=== PATIENT | male | born 1980 | race Caucasian/White ===

== ENCOUNTER 2017-11-02 17:48 | Emergency (ER) | payer OTHER ==
[~2017-11-02] VITALS: Ht 167.6 cm; Wt 100.8 kg
[~2017-11-02 17:48] MED LIST: CLONIDINE HCL0.1 MG PO; DEPAKOTE500 MG PO; DIVALPROEX SOD500 M1 PO; QUETIAPINE FUM200 MG PO; SEROQUEL400 MG PO; SERTRALINE HCL25 MG PO
[2017-11-02 20:21] VITALS: BP 125/83
== END 2017-11-02 20:21 | disposition home or self-care (01) ==
LOC: EME 17:48
DX: F31.32 Bipolar disorder, current episode depressed, moderate (principal); S20.219A Contusion of unspecified front wall of thorax, initial encounter; Z91.14 Patient's other noncompliance with medication regimen; F70 Mild intellectual disabilities; Y04.2XXA Assault by strike against or bumped into by another person, initial encounter; Z87.891 Personal history of nicotine dependence
CPT/HCPCS: 90837; 99281; 99285

== ENCOUNTER 2017-12-13 14:25 | Inpatient (IN) | payer OTHER ==
[~2017-12-13] VITALS: Ht 167.6 cm; Wt 101.6 kg
[2017-12-13 17:40] LABS: HEMATOCRIT 44.3 % (38.0-50.0); HEMOGLOBIN 15.2 G/DL (12.5-16.6); MCHC 34.3 G/DL (30.0-36.0); MCV 90.2 FL (86-99); RBC DIS.WIDTH-CV 13.4 % (11.8-14.6); RBC DIS.WIDTH-SD 44.2 % (39-53); RED BLOOD COUNT 4.91 M/uL (4.00-5.50); WHITE BLOOD COUNT 9.2 K/uL (4.1-10.2)
[2017-12-13 17:51] LABS: CHLORIDE 106 mEq/L (99-109); POTASSIUM 5.2 mEq/L (3.7-5.4); SODIUM 141 mEq/L (136-147)
[2017-12-13 17:53] LABS: GLUCOSE 90 mg/dL (70-99)
[2017-12-13 17:56] LABS: SERUM ETHYL ALCOHOL < 10 mg/dL
[2017-12-13 17:57] LABS: CREATININE 0.7 mg/dL (0.6-1.3); GFR ESTIMATE (CALCULATED) > 59 mL/min/ (58.99-99999)
[2017-12-13 17:58] LABS: UREA NITROGEN (BUN) 9 mg/dL (9-23)
[2017-12-13 19:10] LABS: PLAT.SUFFICIENCY ADEQUATE; PLATELET COUNT 184 K/uL (156-360)
[2017-12-13 21:40] LABS: AMPHETAMINE NEGATIVE (500 ng/mL); BARBITURATES NEGATIVE (200 ng/mL); BENZODIAZEPINES PRESUMPTIVE POSITIVE (150 ng/mL); BUPRENORPHINE NEGATIVE (10 ng/mL); COCAINE NEGATIVE (150 ng/mL); METHADONE NEGATIVE (200 ng/mL); METHAMPHETAMINE NEGATIVE (500 ng/mL); OPIATES (MORPHINE) NEGATIVE (100 ng/mL); OXYCODONE NEGATIVE (100 ng/mL); PHENCYCLIDINE NEGATIVE (25 ng/mL); PROPOXYPHENE NEGATIVE (300 ng/mL); THC CANNABINOIDS NEGATIVE (50 ng/mL); TRICYCLIC ANTIDEPRESSANTS PRESUMPTIVE POSITIVE (300 ng/mL)
[2017-12-13 22:15] LABS: BENZODIAZEPINES, URINE SCREEN Negative (200 ng/mL)
[2017-12-14 02:19] VITALS: BP 115/61
[2017-12-15 07:56] VITALS: BP 155/71
[2017-12-15 16:27] VITALS: BP 116/70
[2017-12-16 08:01] VITALS: BP 128/71
[2017-12-16] MEDS ORDERED: SEROQUEL400 MG PO (10:02)
[2017-12-16] MEDS ORDERED: CLONIDINE HCL0.1 MG PO (10:02)
[2017-12-16] MEDS ORDERED: DIVALPROEX SOD500 M1 PO (10:02)
[2017-12-16] MEDS ORDERED: QUETIAPINE FUM200 MG PO (10:02)
[2017-12-16] MEDS ORDERED: DEPAKOTE500 MG PO (10:02)
[2017-12-16] MEDS ORDERED: SERTRALINE HCL25 MG PO (10:02)
== END 2017-12-16 13:33 | disposition home or self-care (01) | DRG 883 ==
LOC: EME 14:25 → EDOF 22:17 → 1WEST 22:17 → ENRESERV 12-14 02:12 → 1WEST 12-14 02:12
PROVIDERS: Physician Assistant
DX: F63.81 Intermittent explosive disorder (principal); F70 Mild intellectual disabilities; F31.9 Bipolar disorder, unspecified; R45.850 Homicidal ideations; Z78.1 Physical restraint status; R45.851 Suicidal ideations
CPT/HCPCS: 80048; 84999; 85027; 90837; 99281; 99285; G0480; J1630; J2060

== ENCOUNTER 2017-12-26 18:59 | Emergency (ER) | payer OTHER ==
[~2017-12-26] VITALS: Ht 167.6 cm; Wt 99.1 kg
[2017-12-26 19:29] LABS: HEMATOCRIT 42.9 % (38.0-50.0); HEMOGLOBIN 14.8 G/DL (12.5-16.6); MCH 30.6 PG (29.0-34.0); MCHC 34.5 G/DL (30.0-36.0); MCV 88.8 FL (86-99); RBC DIS.WIDTH-CV 13.1 % (11.8-14.6); RBC DIS.WIDTH-SD 42.8 % (39-53); RED BLOOD COUNT 4.83 M/uL (4.00-5.50); WHITE BLOOD COUNT 12.6 K/uL (4.1-10.2)
[2017-12-26 19:37] LABS: CHLORIDE 107 mEq/L (99-109); POTASSIUM 4.7 mEq/L (3.7-5.4); SODIUM 142 mEq/L (136-147)
[2017-12-26 19:39] LABS: GLUCOSE 91 mg/dL (70-99)
[2017-12-26 19:40] LABS: TOTAL PROTEIN 7.7 g/dL (6.4-8.3)
[2017-12-26 19:41] LABS: TOTAL BILIRUBIN 0.2 mg/dL (0.0-1.0)
[2017-12-26 19:42] LABS: SERUM ETHYL ALCOHOL < 10 mg/dL
[2017-12-26 19:43] LABS: AMPHETAMINE NEGATIVE (500 ng/mL); BARBITURATES NEGATIVE (200 ng/mL); BENZODIAZEPINES NEGATIVE (150 ng/mL); BUPRENORPHINE NEGATIVE (10 ng/mL); COCAINE NEGATIVE (150 ng/mL); METHADONE NEGATIVE (200 ng/mL); METHAMPHETAMINE NEGATIVE (500 ng/mL); OPIATES (MORPHINE) NEGATIVE (100 ng/mL); OXYCODONE NEGATIVE (100 ng/mL); PHENCYCLIDINE NEGATIVE (25 ng/mL); PROPOXYPHENE NEGATIVE (300 ng/mL); THC CANNABINOIDS NEGATIVE (50 ng/mL); TRICYCLIC ANTIDEPRESSANTS NEGATIVE (300 ng/mL)
[2017-12-26 19:43] LABS: ALKALINE PHOSPHATASE 51 IU/L (3-129); CREATININE 0.8 mg/dL (0.6-1.3); GFR ESTIMATE (CALCULATED) > 59 mL/min/ (58.99-99999)
[2017-12-26 19:44] LABS: UREA NITROGEN (BUN) 9 mg/dL (9-23)
[2017-12-26 19:45] LABS: AST (GOT) 24 IU/L (2-34)
[2017-12-26 19:46] LABS: ALT (GPT) 21 IU/L (3-49)
[2017-12-26 20:04] LABS: HEMATOLOGY COMMENT 1 SN; PLAT.SUFFICIENCY ADEQUATE; PLATELET COUNT UNABLE TO REPORT K/uL (156-360)
[2017-12-26 20:12] LABS: VALPROIC ACID (DEPAKOTE) 82.3 MCG/ML (50-100)
[2017-12-26 23:44] VITALS: BP 128/85
== END 2017-12-26 23:49 | disposition home or self-care (01) ==
LOC: EME 18:59
PROVIDERS: Emergency Medicine
DX: F31.9 Bipolar disorder, unspecified (principal); F63.81 Intermittent explosive disorder; S00.11XA Contusion of right eyelid and periocular area, initial encounter; S50.312A Abrasion of left elbow, initial encounter; Y04.0XXA Assault by unarmed brawl or fight, initial encounter; Y07.11 Biological father, perpetrator of maltreatment and neglect; F70 Mild intellectual disabilities; F41.9 Anxiety disorder, unspecified; Z87.891 Personal history of nicotine dependence
CPT/HCPCS: 80053; 80164; 85027; 90837; 99281; 99285; G0480

== ENCOUNTER 2018-02-16 22:00 | Emergency (ER) | payer OTHER ==
[~2018-02-16] VITALS: Ht 167.6 cm; Wt 99.6 kg
[2018-02-16 23:15] VITALS: BP 122/88
== END 2018-02-16 23:16 | disposition home or self-care (01) ==
LOC: EME 22:00
DX: S01.112A Laceration without foreign body of left eyelid and periocular area, initial encounter (principal); Y04.0XXA Assault by unarmed brawl or fight, initial encounter; Z23 Encounter for immunization; F31.9 Bipolar disorder, unspecified; F41.9 Anxiety disorder, unspecified; Z87.891 Personal history of nicotine dependence; Z86.69 Personal history of other diseases of the nervous system and sense organs
CPT/HCPCS: 99281; 99283